=== PATIENT | female | born 2005 | race Two or more races ===

== ENCOUNTER 2024-02-01 14:25 | Observation (INO) | payer MEDICAID, SELFPAY ==
[2024-02-01] VITALS (27 sets, daily range): BP systolic 124–154; BP diastolic 76–97; PULSE 92–156; RESP 16; TEMP 36.8; O2SAT 76–99
--- NOTE | 2024-02-01 14:57 | XR_ITS ---
Examination: Complete OB ultrasound greater than 14 weeks Date and time of exam: February 01, 2024 1552 hrs. Indications: Leaking amniotic fluid and pelvic cramping today Findings: Viable intrauterine single fetus with single amniotic sac presentation cephalic Cardiac motion 123 BPM Placenta posterior grade 2 Umbilical cord insertion 3 vessel seen Amniotic fluid index 11.1 cm spine maternal right Cervix 3.1 cm Ovaries obscured by bowel gas. Composite estimated gestational age based on BPD, head circumference, abdominal circumference, femur length is 30 weeks 3 days Estimated weight 1616 g. Survey of intracranial anatomy, spinal anatomy, abdominal anatomy, four-chamber heart performed with no abnormalities identified. Impression: Viable intrauterine gestation cephalic presentation Amniotic fluid index 11.1 cm.
[2024-02-01 15:12] LABS: Collection Type, Urine Clean Catch
[2024-02-01 15:22] LABS: Bilirubin,Urine Negative (Negative); Blood,Urine Negative (Negative); Clarity,Urine Clear (Clear/Hazy); Color,Urine Colorless (Lt Yel-Yel); Glucose, Urine Negative (Negative); Ketones,Urine Negative (Negative); Leukocyte Esterase,Urine Negative (Negative); Nitrite,Urine Negative (Negative); Protein,Urine Negative (Neg - Trace); RBC,Urine 1 /hpf (0-3); Specific Gravity,Urine 1.003 (1.001-1.035); Squamous Epithelial Cell,Urine < 1 /hpf (0-5); Urobilinogen,Urine Negative mg/dL (0.0-1.0); WBC,Urine < 1 /hpf (0-5)
[2024-02-01 15:25] LABS: ROM Kit Lot # 57805053
[2024-02-01 15:27] LABS: ROM Swab Mixed By: HILEL; Rupture of Fetal Membranes Negative (Negative); Swb Mxed in Solvent 1 min? Yes
[2024-02-01] MEDS: NIFEdipine 10 MG CAPSULE PO (19:30)
== END 2024-02-01 19:43 | disposition home or self-care (01) ==
PROVIDERS: Admitting Provider Obstetrics & Gynecology; PCP Nurse Practitioner Women's Health; Visit Provider Obstetrics & Gynecology
DX: O26.893 Other specified pregnancy related conditions, third trimester (principal); M54.50 Low back pain, unspecified; R10.9 Unspecified abdominal pain; Z3A.28 28 weeks gestation of pregnancy
CPT/HCPCS: 59025; 59899; 76805; 81001; 84112; A9270

== ENCOUNTER 2024-03-08 11:25 | Observation (INO) | payer MEDICAID, SELFPAY ==
[2024-03-08 11:37] VITALS: BP 113/77; PULSE 112
[2024-03-08 11:50] VITALS: BP 113/77; RESP 18; TEMP 36.7
[2024-03-08 11:52] VITALS: BMI 36.8
[2024-03-08 12:11] VITALS: BP 106/70; PULSE 104
[2024-03-08 12:18] LABS: Collection Type, Urine Clean Catch
[2024-03-08 12:19] LABS: Basophils % (Auto) 0 % (0-2.5); Eosinophils % (Auto) 0 % (0-10); Hematocrit 35.1 % (36.0-46.0); Immature Granulocytes % (Auto) 0 % (0-0); Immature Granulocytes Auto 0.04 Thou/mm3 (0.00-0.00); Lymphocytes # (Auto) 1.4 Thou/mm3 (1.0-4.8); Lymphocytes % (Auto) 15 % (10-50); Mean Corpuscular HGB Conc 34.2 g/dl (31.0-37.0); Mean Corpuscular Hemoglobin 27.6 pg (25.0-35.0); Mean Corpuscular Volume 81 fL (80-100); Monocytes # (Auto) 0.7 Thou/mm3 (0.0-0.8); Monocytes % (Auto) 8 % (0-12); Neutrophils # (Auto) 7.4 Thou/mm3 (1.8-7.7); Neutrophils % (Auto) 77 % (37-80); Nucleated Red Blood Cell % 0 /100 WBC (0); Platelet Count 285 Thou/mm3 (140-440); RDW Standard Deviation 38.1 fL (36.4-46.3); Red Blood Count 4.34 Miln/mm3 (4.00-5.20); White Blood Count 9.5 Thou/mm3 (4.5-11.0)
[2024-03-08 12:25] VITALS: BP 111/71; PULSE 110
[2024-03-08 12:25] LABS: Bilirubin,Urine Negative (Negative); Blood,Urine Negative (Negative); Budding Yeast,Urine Present; Clarity,Urine Turbid (Clear/Hazy); Color,Urine Yellow (Lt Yel-Yel); Glucose, Urine Negative (Negative); Ketones,Urine Negative (Negative); Leukocyte Esterase,Urine Positive (Negative); Nitrite,Urine Negative (Negative); Protein,Urine Negative (Neg - Trace); RBC,Urine 27 /hpf (0-3); Specific Gravity,Urine 1.014 (1.001-1.035); Squamous Epithelial Cell,Urine 12 /hpf (0-5); Urobilinogen,Urine Negative mg/dL (0.0-1.0); WBC,Urine 1 /hpf (0-5)
[2024-03-08 12:40] VITALS: BP 106/72; PULSE 104
[2024-03-08 12:40] LABS: Fibrinogen 453 mg/dL (175-375); Partial Thromboplastin Time 27.2 Seconds (22.0-36.0); Prothrombin Time 10.9 Seconds (9.0-12.2)
[2024-03-08 12:42] LABS: Alanine Aminotransferase 16 U/L (10-49); Albumin, Serum 3.7 gm/dL (3.5-5.0); Albumin/Globulin Ratio 1.6 (1.2-2.2); Alkaline Phosphatase 210 U/L (46-116); Anion Gap 9 (7-16); Aspartate Amino Transferase 18 U/L (0-34); BUN/Creatinine Ratio 8 Ratio (12-20); Bilirubin,Total 0.4 mg/dL (0.3-1.2); Blood Urea Nitrogen 5 mg/dL (9-23); Calcium 9.6 mg/dL (8.3-10.6); Calcium (Corrected) 9.8 mg/dL (8.5-10.1); Carbon Dioxide 24.2 mMol/L (20.0-31.0); Chloride 105 mMol/L (98-107); Creatinine (Component) 0.6 mg/dL (0.6-1.3); Estimated Creatinine Clearance 151.3 mL/min (>60); Globulin 2.3 gm/dL (2.3-3.5); Glucose 119 mg/dL (74-106); LDH (Lactate Dehydrogenase) 157 U/L (120-246); Osmolality,Calculated 273 (275-295); Potassium 3.2 mMol/L (3.4-5.1); Sodium 138 mMol/L (136-145); Uric Acid 4.3 mg/dL (3.1-7.8); eGFR > 60 See Note
== END 2024-03-08 12:55 | disposition home or self-care (01) ==
PROVIDERS: Admitting Provider Student in an Organized Health Care Education/Training Program; Visit Provider Student in an Organized Health Care Education/Training Program
DX: Z34.83 Encounter for supervision of other normal pregnancy, third trimester (principal); Z36.89 Encounter for other specified antenatal screening; Z3A.33 33 weeks gestation of pregnancy
CPT/HCPCS: 36415; 59025; 59899; 80053; 81001; 83615; 84550; 85025; 85384; 85610; 85730

== ENCOUNTER 2024-03-18 17:50 | Observation (INO) | payer MEDICAID, SELFPAY ==
[2024-03-18] VITALS (84 sets, daily range): BP systolic 111–137; BP diastolic 55–86; PULSE 91–115; O2SAT 92–99; BMI 31.0
[2024-03-18] MEDS: BETAMET ACET/BETAMET NA PH (Celestone) 6 MG/ML VIAL 12 MG IM (19:23)
[2024-03-18] MEDS: ACETAMINOPHEN 325 MG TABLET 650 MG PO (22:24)
[2024-03-18] MEDS: ACETAMIN/CAFF/BUTAL (Fioricet) 1 TAB PO (23:35)
[2024-03-18] MEDS: FAMOTIDINE INJ 10 MG/ML VIAL 2 ML 20 MG IVP (23:35)
[2024-03-18] MEDS: RINGERS LACTATED 1000 ML 1,000 ML 125 ML IV (23:40)
[2024-03-19] VITALS (170 sets, daily range): BP systolic 92–155; BP diastolic 54–85; PULSE 79–120; RESP 18; TEMP 36.8–37; O2SAT 89–99
--- NOTE | 2024-03-19 07:00 | XR_ITS ---
Examination: age Limited TECHNIQUE: Limited transabdominal sonographic images pelvis Exam date and time: March 19, 2004 0719 hours INDICATIONS: Diagnosis leaking amniotic fluid FINDINGS: Viable intrauterine gestation Cardiac motion 131 BPM Amniotic fluid index 11.1 cm IMPRESSION: Amniotic fluid index 11.1 cm
[2024-03-19] MEDS: RINGERS LACTATED 1000 ML 1,000 ML 125 ML IV (07:18)
[2024-03-19] MEDS: LABETALOL 100 MG TABLET PO (08:42)
--- NOTE | 2024-03-19 09:10 | XR_ITS ---
Examination: Biophysical profile, ultrasound Date and time of exam: March 19, 2024 0947 hours INDICATIONS: Diagnosis labor, history intermittent pelvic pain beginning 3 days ago Technique: Multiple transabdominal sonographic images of the pelvis abdomen obtained. Attention is directed to the breathing movement, gross body movement, amniotic fluid volume and tone. Findings: Amniotic fluid index 9.4 cm Total biophysical profile is 8 of 8. breathing movement is 2. Gross body movement is 2. tone is 2. Qualitative amniotic fluid volume is 2 Impression: Biophysical profile is 8 of 8.
--- NOTE | 2024-03-19 12:15 | PD.LDTRIAGE2 ---
Documentation for date of: 03/18/24 Hx History : 2 Complaint Complaint Complaint: 18-year-old G2, P0 at 35 weeks and 1 day presented with complaints of leaking. AmniSure was negative NST was nonreactive ( variables. non recurrent, baseline wandering , few episodes of baseline as low as 90) however BPP was 8 out of 8. The patient was admitted for a prolonged observation. Of note baby has a history of 2 small VSDs in her echocardiogram. Overnight monitoring showed baseline fluctuations from 140 to 100s. Moderate variability and accelerations were seen through out. I spoke with Dr Donald , who advised ECHO. Cooper was discharged and sent to L&D , [facility], fro monitoring and ECHO. Patient has allready recieved 2 doses of betamethasone Contractions Evaluation Contractions Monitor Mode: External Contraction Frequency: none Sterile Vaginal Exam Cervical Dilatation: fingertip Heart Monitoring Heart Rate Assessment Monitor Mode: External Amniotic Membranes Amniotic Membranes Amniotic Membrane Status: Intact RN Notes Disposition Dispostition: 23hr Observation
[2024-03-19] MEDS: BETAMET ACET/BETAMET NA PH (Celestone) 6 MG/ML VIAL 12 MG IM (12:21)
== END 2024-03-19 12:35 | disposition home or self-care (01) ==
PROVIDERS: Admitting Provider Student in an Organized Health Care Education/Training Program; Visit Provider Student in an Organized Health Care Education/Training Program
DX: Z34.83 Encounter for supervision of other normal pregnancy, third trimester (principal); Z36.9 Encounter for antenatal screening, unspecified; Z3A.35 35 weeks gestation of pregnancy
CPT/HCPCS: 59899; 76815; 76819; 96360; 96361; 96372; J0702; J3490; J7120; A9270

== ENCOUNTER 2024-03-31 13:21 | Inpatient (IN) | payer MEDICAID, SELFPAY ==
[2024-03-31] VITALS (103 sets, daily range): BP systolic 0–144; BP diastolic 0–95; PULSE 91–119; RESP 17–18; TEMP 36.6–37.2; O2SAT 85–100; BMI 30.4
--- NOTE | 2024-03-31 14:37 | ESHP_ITS ---
Documentation for date of: 03/31/24 OB Labor/Induct. HPI History of Present Illness Chief complaint: Induction of labor at 37 weeks for suspected LGA and - induced HTN : 2 History of Abortions: Spontaneous and Elective: 1 History of sections: No History of : No LICHA: 04/21/24 Gestational Age (weeks): 37 Gestational Age (days): 0 Indication for induction: medical complication History of present illness: The patient is a 18-year-old -0-1-0 who sees the regeneration operator at [facility] who presented for scheduled induction of labor at 37 weeks for gestational hypertension. Patient has been started on labetalol this 100 mg p.o. daily. She is also been followed with the maternal- medicine service with Dr. Sandoval in [place] for VSDs in the baby. On March 08, 2024 Dr. Sandoval's saw the patient and performed an ultrasound. She was 33 weeks the baby was measuring [address] Sandoval suggested delivery between 37 and 38 weeks for hypertension if severe features develop. On the day of admission patient denies headaches changes in vision or right upper quadrant pain. She is reporting good movement. No loss of no loss of fluids or vaginal bleeding. She denies feeling contractions. History of Present Dating criteria: LMP confirmed by 1st trimester US Adequate Care: Yes Ultrasounds: abnormal US findings Abnormal ultrasound findings: Baby with 2 VSDs Obstetrical complications: gestational hypertension Labs Maternal Blood Type: O Neg Labs: Negative: RPR, Hepatitis B, HIV, Chlamydia and Gonorrhea Review of Systems Constitutional Constitutional: Reports system reviewed and no additional complaints, except as documented Comments: Patient reports good movement no contractions on admission no signs of preeclampsia on admission Past Medical History Surgical History SURGICAL: Negative Section Meds Home Medications and Allergies Home Medications ?Medication ?Instructions ?Recorded ?Confirmed ?Type vits no.124-ferrous fum 1 tab PO QDAY 4 03/31/24 History 27 mg iron-folic acid 800 mcg tablet ( Vitamin) labetalol 100 mg tablet 100 mg PO QDAY 03/18/2403/04 History folic acid 800 mcg tablet 0.8 mg PO QDAY 03/31/2403/04 History Allergies Allergy/AdvReac Type Severity Reaction Status Date / Time No Known Allergies Allergy Verified 03/31/24 14:15 OB Exam Physical Exam Vital signs: Pulse BP Pulse Ox 103 H 123/86 H 97 03/31/24 14:14 03/31/24 14:14 03/31/24 14:35 Routine Abdominal Exam Abdominal: Present soft Detailed Labor and Delivery Exam Dilation (cm): 2-3 Effacement (%): 70 Cervix position: posterior station: -2 Consistency: medium Presentation: Vertex Membranes: intact monitor accelerations: 15x15 monitor decelerations: None USP variability: Moderate (11-25) Contraction frequency (min): None OB Assessment & Plan Additional Plan Induction method: per misoprostol protocol Plan: induction Additional Plan Comment: Patient is admitted for induction of labor at 37 weeks secondary to gestational hypertension on medication. The Baby also has a suspected LGA. The Baby should be about 8 pounds based on a 33-week ultrasound performed by the [facility]. The baby also has 2 VSDs. The Baby will need an echocardiogram after . Plan for buccal Cytotec induction for gestational hypertension at this point.
[2024-03-31] MEDS: MISOPROSTOL 50 mCg TABLET PO ×2 (15:13→19:40)
[2024-03-31 15:47] LABS: Collection Type, Urine Clean Catch
[2024-03-31 15:53] LABS: Basophils % (Auto) 0 % (0-2.5); Eosinophils % (Auto) 0 % (0-10); Hematocrit 37.7 % (36.0-46.0); Hemoglobin 12.4 g/dL (12.0-16.0); Immature Granulocytes % (Auto) 1 % (0-0); Immature Granulocytes Auto 0.07 Thou/mm3 (0.00-0.00); Lymphocytes # (Auto) 1.9 Thou/mm3 (1.0-4.8); Lymphocytes % (Auto) 15 % (10-50); Mean Corpuscular HGB Conc 32.9 g/dl (31.0-37.0); Mean Corpuscular Hemoglobin 26.2 pg (25.0-35.0); Mean Corpuscular Volume 80 fL (80-100); Monocytes # (Auto) 0.8 Thou/mm3 (0.0-0.8); Monocytes % (Auto) 6 % (0-12); Neutrophils # (Auto) 10.2 Thou/mm3 (1.8-7.7); Neutrophils % (Auto) 78 % (37-80); Nucleated Red Blood Cell % 0 /100 WBC (0); Platelet Count 337 Thou/mm3 (140-440); RDW Standard Deviation 39.9 fL (36.4-46.3); Red Blood Count 4.73 Miln/mm3 (4.00-5.20); White Blood Count 13.1 Thou/mm3 (4.5-11.0)
[2024-03-31 16:03] LABS: Creatinine,Random Urine 110 mg/dL (30-125); Protein Total, Random Urine 15 mg/dL (1-14)
[2024-03-31 16:04] LABS: Bilirubin,Urine Negative (Negative); Blood,Urine Negative (Negative); Clarity,Urine Clear (Clear/Hazy); Color,Urine Lt-Yellow (Lt Yel-Yel); Glucose, Urine Negative (Negative); Ketones,Urine Negative (Negative); Leukocyte Esterase,Urine Negative (Negative); Nitrite,Urine Negative (Negative); Protein,Urine Negative (Neg - Trace); RBC,Urine 4 /hpf (0-3); Specific Gravity,Urine 1.014 (1.001-1.035); Squamous Epithelial Cell,Urine 2 /hpf (0-5); Urobilinogen,Urine Negative mg/dL (0.0-1.0); WBC,Urine 1 /hpf (0-5)
[2024-03-31 16:15] LABS: Fibrinogen 524 mg/dL (175-375); Partial Thromboplastin Time 27.6 Seconds (22.0-36.0); Prothrombin Time 10.8 Seconds (9.0-12.2)
[2024-03-31 16:19] LABS: Alanine Aminotransferase 8 U/L (10-49); Albumin, Serum 4.1 gm/dL (3.5-5.0); Albumin/Globulin Ratio 1.6 (1.2-2.2); Alkaline Phosphatase 294 U/L (46-116); Anion Gap 11 (7-16); Aspartate Amino Transferase 12 U/L (0-34); BUN/Creatinine Ratio 10 Ratio (12-20); Bilirubin,Total 0.4 mg/dL (0.3-1.2); Blood Urea Nitrogen 7 mg/dL (9-23); Calcium 9.1 mg/dL (8.3-10.6); Calcium (Corrected) 9.1 mg/dL (8.5-10.1); Carbon Dioxide 21.5 mMol/L (20.0-31.0); Chloride 103 mMol/L (98-107); Creatinine (Component) 0.7 mg/dL (0.6-1.3); Globulin 2.5 gm/dL (2.3-3.5); Glucose 77 mg/dL (74-106); Osmolality,Calculated 267 (275-295); Potassium 3.3 mMol/L (3.4-5.1); Sodium 135 mMol/L (136-145); Total Protein 6.6 gm/dL (5.7-8.2); eGFR > 60 See Note
[2024-03-31 16:26] LABS: Syphilis Nonreactive (Nonreactive)
[2024-04-01] VITALS (327 sets, daily range): BP systolic 0–167; BP diastolic 0–132; PULSE 79–129; RESP 15–18; TEMP 36.6–37.1; O2SAT 75–100
[2024-04-01] MEDS: MISOPROSTOL 50 mCg TABLET PO (00:30)
[2024-04-01] MEDS: RINGERS LACTATED 1000 ML 1,000 ML 125 ML IV ×3 (04:00→07:33)
--- NOTE | 2024-04-01 04:50 | PD.LDPN ---
Documentation for date of: 04/01/24 OB Labor Progress Note Pain Control Comments: Patient is feeling contractions would like an epidural at this point. Pelvic Exam Dilation (cm): 5 Effacement (%): 70 station: -2 Amniotic membrane status: Bulging Contractions Monitor mode: External Contraction frequency: 3-4 min Contraction intensity: Moderate Status status: Category l Assessment and Plan Assessment: active labor and induction ongoing Comments: The patient will have epidural placed. Then will consider AROM and/or Pitocin after patient is comfortable with epidural. Patient had 3 doses of buccal Cytotec 50 each.
--- NOTE | 2024-04-01 05:52 | PD.ADDDELA ---
Addendum Delivery Summary A Addendum Date of report being addended: 04/01/24 Narrative: Per the nursery the Apgars on the baby are now 6,8 and 10
--- NOTE | 2024-04-01 10:15 | PD.LDPN ---
Documentation for date of: 04/01/24 OB Labor Progress Note Pelvic Exam Dilation (cm): 5 Effacement (%): 70 station: -2 Amniotic membrane status: Bulging Contractions Monitor mode: External Contraction frequency: 3-4 min Contraction intensity: Moderate Status status: Category l Assessment and Plan Comments: I assumed care of Lisa at 0700 this morning. In brief, she is a 18yo with SIUP at 37wk undergoing IOL for GHTN on labetalol 100mg PO BID. complicated by known VSDs for which she has been followed by MFM. Also LGA. She has received cytotec and progressed into labor. Recently received epidural and currently comfortable. Vitals wnl, afebrile Cat I FHRT SCE: /-2, soft/mid. AROM performed at 0835, clear. Plan to continue close observation IV pitocin augmentation per protocol as indicated CEFM Safe to proceed echo after delivery per MFM's plan in place Shahnaz Cobb MD
[2024-04-01] MEDS: OXYTOCIN in NS 20 units 20 UNIT/1,000 ML BAG 125 UNIT IV ×2 (16:37→20:12)
[2024-04-01] MEDS: BENZO/LANO/ALOE (Dermoplast) 60 GM CAN 1 SPRAY TOP (16:41)
[2024-04-01] MEDS: MINERAL OIL 30 ML UDC TOP (16:41)
[2024-04-01] MEDS: IBUPROFEN TAB 400 MG TABLET 800 MG PO (16:42)
--- NOTE | 2024-04-01 16:54 | OBDSUM_ITS ---
Data ([facility]) Data Hx Section: No : 2 Para: 0 Term: 0 : 0 : 1 Delivery Data ([facility]) Labor Data ROM Date: 04/01/24 ROM Time: 08:35 Rupture Type: AROM Amniotic Fluid: Clear Delivery Data Labor Onset Stage 1 Date: 04/01/24 Labor Onset Stage 1 Time: 04:30 Labor Onset Stage 2 Date: 04/01/24 Labor Onset Stage 2 Time: 16:01 Delivery Date: 04/01/24 Delivery Time: 16:30 Placenta Delivery Date: 04/01/24 Placenta Delivery Time: 16:37 Delivered by: Shahnaz Cobb Delivery nurse: Soraida Rose Other staff at delivery: 2nd Nurse Other staff at delivery: Bench Boring Machine Operator Other staff at delivery: RT Other staff at delivery: La Skinner Other staff at delivery: MD Gaines Omid Other staff at delivery: fruib Delivery Method Delivery: Vaginal Delivery Type: Spontaneous Anesthesia Type Primary Anesthesia: Epidural Placenta Placenta Delivery: Spontaneous Cord Sample: Cord Blood Obtained Episiotomy Episiotomy: Midline EBL Estimated blood loss (ml): 300 Umbilical Cord Nuchal Cord: x1 Additional Procedures Lisa is a 18yo [id number] s/p uncomplicated at 37w1d after undergoing IOL for GHTN, delivering at 1630 on 04/01/2024. She progressed through induction without complications until she was C/C/+1 at which point she began pushing. She had received an epidural. There was heart rate decelerations to the 80's with pushes as the infant was at +4/+5 station and the introitus was very narrow with laceration inevitable, so I obtained consent from the patient to make a small midline episiotomy only 1cm in size to facilitate delivery. After that, with good maternal pushing efforts, 's head then delivered OA and restituted CURTIS. One snug nuchal cord reduced. Left anterior shoulder delivered easily followed by posterior shoulder and corpus. Infant had spontaneous cry and was vigorous. Apgars 8/9. Infant placed on maternal abdomen where nose/mouth were suctioned and was dried/stimulated. After approximately 1 minute, cord was clamped x2 and cut by FOB. Baby went to warmer for assessment by inspector and hand packager given the previous finding of VSDs on ultrasound. Cord blood collected for typing. With fundal massage and cord traction, placenta delivered spontaneously and intact with 3 vessel centrally inserted cord. Placenta appeared quite calcified. Bimanual massage performed and IV pitocin given per protocol with fundus then firm at u-2cm and hemostasis noted. Inspection of perineum and vagina revealed a superficial right labial laceration and the small 1cm midline episiotomy that had no extension which were both repaired with 4-0 vicryl in routine fashion with complete reapproximation and hemostasis achieved. Small trickle of blood, so sweep just within cervix/JACOB performed which retrieved a small amount of clot. Fundus and JACOB remained firm. All counts correct x2. Mom and infant were doing well when I left the room. Shahnaz Cobb MD Complications Complications: none [place] Data ([facility]) Data Gender: Female Weight Grams: 3280 1 Minute Total: 8 5 Minute Total: 9
[2024-04-01] MEDS: TRANEXAMIC ACID 1,000 MG IVPB 1,000 MG/100 ML BAG 200 MG IV (19:54)
[2024-04-01] MEDS: RINGERS LACTATED 1000 ML 1,000 ML 999 ML IV (20:00)
[2024-04-01] MEDS: CARBOPROST TROMETH INJ 250 MCG/ML VIAL IM (20:05)
[2024-04-01] MEDS: MISOPROSTOL 200 mCg TABLET 800 MCG PO (20:07)
[2024-04-01] MEDS: DIPHENOXYLATE/ATROP SULF 1 TAB PO (20:15)
--- NOTE | 2024-04-01 20:37 | PC.NURSE ---
1957- provider at bedside to assess pt. Updated on maternal status with continued clots and bleeding ( trickle flowing). QBL at 605ml
[2024-04-01 20:40] LABS: Basophils % (Auto) 0 % (0-2.5); Eosinophils % (Auto) 0 % (0-10); Hematocrit 27.8 % (36.0-46.0); Hemoglobin 9.4 g/dL (12.0-16.0); Immature Granulocytes % (Auto) 0 % (0-0); Immature Granulocytes Auto 0.07 Thou/mm3 (0.00-0.00); Lymphocytes # (Auto) 1.4 Thou/mm3 (1.0-4.8); Lymphocytes % (Auto) 8 % (10-50); Mean Corpuscular HGB Conc 33.8 g/dl (31.0-37.0); Mean Corpuscular Hemoglobin 26.9 pg (25.0-35.0); Mean Corpuscular Volume 79 fL (80-100); Monocytes # (Auto) 1.2 Thou/mm3 (0.0-0.8); Monocytes % (Auto) 7 % (0-12); Neutrophils # (Auto) 14.3 Thou/mm3 (1.8-7.7); Neutrophils % (Auto) 84 % (37-80); Nucleated Red Blood Cell % 0 /100 WBC (0); Platelet Count 270 Thou/mm3 (140-440); RDW Standard Deviation 39.8 fL (36.4-46.3); White Blood Count 16.9 Thou/mm3 (4.5-11.0)
[2024-04-01] MEDS: ACETAMINOPHEN 325 MG TABLET 650 MG PO (21:14)
--- NOTE | 2024-04-01 21:37 | EVENTNT_ITS ---
Documentation for date of: 04/01/24 Event Note Event Note: Hemorrhage I was called by RN to bedside to evaluate for excess bleeding. Initially RN had observed a trickle of bleeding, but then with fundal massage there was a large clot that came out and continued bleeding. When I arrived to the floor, I was informed a vaginal exam had been done with a large amount of clot retrieved from within the lower uterus but patient had continued bleeding. The PPH cart was in the room. I donned gloves and gown and performed an exam. Fundus was firm and there was only a small amount of clot within the lower uterine segment. The top of the uterus was very firm and clamped down with nothing retained. I performed bimanual massage as 2nd bag of IV pitocin was infusing and I requested for 0.25mg IM hemabate to be given as well as 1g IV TXA. I continued to massage the fundus of the uterus and the bleeding slowed to normal lochia. I used sterile gauze pad to blot within the perineal/vaginal area and ensured that the earlier repair had not been disrupted. I then placed 800mcg cytotec CO. Patient tolerated all of this very well. During the entire episode she had normal pulse 80's, bp 140's systolic and never felt lightheaded. I asked for CBC to be performed which resulted 9.5 Hgb. Will repeat in am. Continued close observation to be performed for 2 hours before patient is transferred to PP room. PP EBL 1100ml (total 1300ml including delivery). Imodium will be given to co unteract the side effects of hemabate. Shahnaz Cobb MD
[2024-04-02 00:55] VITALS: BP 123/82; PULSE 91; RESP 16; TEMP 36.8
[2024-04-02 04:43] VITALS: BP 107/68; PULSE 85; RESP 16; TEMP 36.9; O2SAT 98
[2024-04-02 06:53] LABS: Basophils % (Auto) 0 % (0-2.5); Eosinophils % (Auto) 0 % (0-10); Hemoglobin 9.2 g/dL (12.0-16.0); Immature Granulocytes % (Auto) 1 % (0-0); Lymphocytes # (Auto) 2.3 Thou/mm3 (1.0-4.8); Lymphocytes % (Auto) 16 % (10-50); Mean Corpuscular HGB Conc 32.9 g/dl (31.0-37.0); Mean Corpuscular Hemoglobin 26.7 pg (25.0-35.0); Mean Corpuscular Volume 81 fL (80-100); Monocytes % (Auto) 7 % (0-12); Neutrophils # (Auto) 10.9 Thou/mm3 (1.8-7.7); Neutrophils % (Auto) 76 % (37-80); Nucleated Red Blood Cell % 0 /100 WBC (0); Platelet Count 267 Thou/mm3 (140-440); RDW Standard Deviation 40.6 fL (36.4-46.3); Red Blood Count 3.44 Miln/mm3 (4.00-5.20); White Blood Count 14.3 Thou/mm3 (4.5-11.0)
[2024-04-02 07:56] VITALS: BP 107/70; PULSE 95; RESP 17; TEMP 36.8; O2SAT 98
[2024-04-02 09:00] VITALS: BP 107/70; PULSE 95
[2024-04-02] MEDS: IBUPROFEN TAB 400 MG TABLET 800 MG PO (11:22)
--- NOTE | 2024-04-02 12:07 | PD.LDDS ---
DS: Providers Provider Date of admission: 03/31/24 13:21 Primary care physician: Physician No Primary/Family Admitting Provider: Marlen Mobley MD Attending Provider on Admission: Marlen Mobley MD Consults: 04/01/24 16:52 Referral Routine Comment: Attending Provider on DC: Shahnaz Cobb MD Discharging Provider: Shahnaz Cobb MD DS: Diagnosis Discharge Diagnosis (1) Gestational hypertension: Status: Acute (2) hemorrhage: Status: Acute (3) Anemia, : Status: Acute Problem List Completed Was Problem List Reviewed/Reconciled?: Yes Summary/Hosp Course Brief History: The patient is a 18-year-old -0-1-0 who sees the certified medical assistant at [facility] who presented for scheduled induction of labor at 37 weeks for gestational hypertension. Patient has been started on labetalol this 100 mg p.o. daily. She is also been followed with the maternal- medicine service with Dr. Sandoval in [place] for VSDs in the baby. On March 08, 2024 Dr. Sandoval's saw the patient and performed an ultrasound. She was 33 weeks the baby was measuring [address] Sandoval suggested delivery between 37 and 38 weeks for hypertension if severe features develop. On the day of admission patient denies headaches changes in vision or right upper quadrant pain. She is reporting good movement. No loss of no loss of fluids or vaginal bleeding. She denies feeling contractions. Lisa is a 18yo [id number] s/p at 37wk after undergoing IOL for GHTN, delivering at 1630 on 04/02/24. She had a PPH of approximately 1100ml EBL a couple hours after delivery related to atony that was completely treated with evacuation of clots, uterine massage and uterotonics. She is meeting all milestones and feels ready for discharge home. She is ambulating without lightheadedness, tolerating regular diet no n/v, spontaneously voiding without issue. She has no chest pain or shortness of breath. No fevers or chills. Minimal, appropriate discomfort. Vitals normal, benign exam. Hemodymanically stable with no evidence of infection. PP Hgb 9.2. Status at Discharge Functional status at discharge: independent ambulation Overall status at discharge: patient is back to baseline Time Spent with Patient Time attestation: Total time spent providing and/or coordinating discharge services: Exam Vital Signs Temp Pulse Resp BP Pulse Ox O2 Del Method 98.3 F 95 17 107/70 98 Room Air 04/02/24 07:56 04/02/24 07:56 04/02/24 07:56 04/02/24 07:56 04/02/24 07:56 04/02/24 07:56 Narrative Exam General: well developed, well nourished, no acute distress, conversant Cardiac: normal heart rate Lungs: breathing without distress Abdomen: soft, post-gravid, non-tender, no rebound or guarding. Fundus firm at u-2cm. Extremities: no pain with palpation of calves, trace edema of BLE Discharge Plan Plan Patient Disposition: HOME (Self Care) Patient condition on transfer: Stable Prescriptions/Referrals Prescriptions/Med Rec: New docusate sodium 100 mg Capsule 100 mg PO BID 10 Days Qty: 20 0RF ibuprofen 800 mg tablet 800 mg PO Q8H PRN (Reason: See Comments) 10 Days Qty: 30 0RF ferrous sulfate 325 mg (65 mg iron) tablet 325 mg PO QDAY Qty: 30 0RF Continued folic acid 800 mcg tablet 0.8 mg PO QDAY Patient Comments: TOME 1 TABLETA POR V A ORAL TODOS LOS D Vitamin 27 mg iron- 800 mcg Tablet 1 tab PO QDAY Discontinued labetalol 100 mg Tablet 100 mg PO QDAY Referrals: No Primary/Family,Physician [Primary Care Provider] - Patient/Caregiver Discharge Instructions Discharge Activity: activity as tolerated Other Discharge Activity Instructions:: Vaginal rest, no bathing (shower ok) and no heavy lifting greater than 10 pounds for 6 weeks Other Discharge Diet Instructions: regular diet Education Materials: After a Vaginal , Gestational Hypertension Print Language: Faroese Activity Restrictions/Additional Instructions: follow up in 1 week with OBGYN or CNM in clinic for bp check Stand Alone Forms: Bonnie Award Info., Patient Portal Info Letter Discharge Order Discharge Orders: Discharge (Routine); Ordered 04/02/24 Ordered By: Shahnaz Cobb Planned Discharge Date 04/02/24 (1) Gestational hypertension Qualifiers: Trimester: third trimester Qualified Code(s): O13.3 - Gestational [-induced] hypertension without significant proteinuria, third trimester (2) hemorrhage Qualifiers: hemorrhage type: delayed hemorrhage Qualified Code(s): O72.2 - Delayed and secondary hemorrhage
[2024-04-02 12:41] VITALS: BP 126/89; PULSE 110; RESP 17; TEMP 37; O2SAT 97
[2024-04-02] MEDS: ACETAMINOPHEN 325 MG TABLET 650 MG PO (18:13)
== END 2024-04-02 18:50 | disposition home or self-care (01) | DRG 560 ==
LOC: S4SX 04-01 17:36 → S4NX 04-01 23:07
PROVIDERS: Obstetrics & Gynecology; Admitting Provider Obstetrics & Gynecology; Visit Provider Obstetrics & Gynecology
DX: O13.4 Gestational [pregnancy-induced] hypertension without significant proteinuria, complicating childbirth (principal); Z37.0 Single live birth; O70.0 First degree perineal laceration during delivery; Z3A.37 37 weeks gestation of pregnancy; O72.2 Delayed and secondary postpartum hemorrhage; O90.81 Anemia of the puerperium; O76 Abnormality in fetal heart rate and rhythm complicating labor and delivery; O36.63X0 Maternal care for excessive fetal growth, third trimester, not applicable or unspecified; O69.81X0 Labor and delivery complicated by cord around neck, without compression, not applicable or unspecified; O99.42 Diseases of the circulatory system complicating childbirth; Q21.0 Ventricular septal defect
CPT/HCPCS: 36415; 59409; 80053; 81001; 82570; 84156; 84550; 85025; 85384; 85610; 85730; 86780; 86850; 86900; 86901; 86923; 94762; J2590; J3490; J7120; S0191; A9270

== ENCOUNTER 2024-04-10 03:57 | Emergency (ER) | payer MEDICAID, SELFPAY ==
[2024-04-10 03:58] VITALS: BMI 27.7
[2024-04-10 04:10] VITALS: BP 132/95; PULSE 125; RESP 18; TEMP 37.9; O2SAT 96
--- NOTE | 2024-04-10 04:32 | PD.EDRME ---
Rapid Medical Screening Exam [facility] Arrival date/time: 04/10/24 03:57 18F with no significant PMH presents to ED with presents to ED with 2 days of MACEDO, N/V, ab/pelvic pain/cramping, and non-bloody diarrhea. Patient denies URI symptoms and sick contacts. Patient had a vaginal delivery here 1 week ago. Patient notes the vaginal bleeding had been lessening but then got worse around the same time as the other symptoms. Chief Complaint: Vaginal Bleeding Vital signs: Vital Signs Temperature 100.3 F 04/10/24 04:10 Pulse Rate 125 H 04/10/24 04:10 Respiratory Rate 18 04/10/24 04:10 Blood Pressure 132/95 H 04/10/24 04:10 Pulse Oximetry (%) 96 04/10/24 04:10 Oxygen Delivery Method Room Air 04/10/24 04:10
[2024-04-10 05:01] LABS: Lactate (Lactic Acid) 1.6 mMol/L (0.4-2.0)
[2024-04-10] MEDS: ONDANSETRON ODT 4 MG TABRAP PO (05:06)
[2024-04-10 05:07] VITALS: TEMP 37.9
[2024-04-10] MEDS: ACETAMINOPHEN 500 MG TABLET 1000 MG PO (05:07)
[2024-04-10 05:08] LABS: Basophils % (Auto) 0 % (0-2.5); Eosinophils % (Auto) 0 % (0-10); Hematocrit 37.9 % (36.0-46.0); Hemoglobin 12.2 g/dL (12.0-16.0); Immature Granulocytes % (Auto) 0 % (0-0); Immature Granulocytes Auto 0.05 Thou/mm3 (0.00-0.00); Lymphocytes # (Auto) 0.6 Thou/mm3 (1.0-4.8); Lymphocytes % (Auto) 5 % (10-50); Mean Corpuscular HGB Conc 32.2 g/dl (31.0-37.0); Mean Corpuscular Hemoglobin 26.4 pg (25.0-35.0); Mean Corpuscular Volume 82 fL (80-100); Monocytes # (Auto) 0.1 Thou/mm3 (0.0-0.8); Monocytes % (Auto) 1 % (0-12); Neutrophils # (Auto) 11.6 Thou/mm3 (1.8-7.7); Neutrophils % (Auto) 94 % (37-80); Nucleated Red Blood Cell % 0 /100 WBC (0); Platelet Count 502 Thou/mm3 (140-440); RDW Standard Deviation 44.3 fL (36.4-46.3); Red Blood Count 4.62 Miln/mm3 (4.00-5.20); White Blood Count 12.4 Thou/mm3 (4.5-11.0)
[2024-04-10 05:20] VITALS: BP 112/81; PULSE 104; RESP 18; TEMP 37.2; O2SAT 97
[2024-04-10 05:28] LABS: Alanine Aminotransferase 21 U/L (10-49); Albumin/Globulin Ratio 1.5 (1.2-2.2); Alkaline Phosphatase 182 U/L (46-116); Anion Gap 9 (7-16); Aspartate Amino Transferase 17 U/L (0-34); BUN/Creatinine Ratio 15 Ratio (12-20); Bilirubin,Total 0.4 mg/dL (0.3-1.2); Blood Urea Nitrogen 9 mg/dL (9-23); Calcium 9.1 mg/dL (8.3-10.6); Calcium (Corrected) 9.1 mg/dL (8.5-10.1); Carbon Dioxide 23.6 mMol/L (20.0-31.0); Chloride 108 mMol/L (98-107); Creatinine (Component) 0.6 mg/dL (0.6-1.3); Estimated Creatinine Clearance 163.1 mL/min (>60); Globulin 2.7 gm/dL (2.3-3.5); Glucose 91 mg/dL (74-106); Osmolality,Calculated 279 (275-295); Potassium 3.8 mMol/L (3.4-5.1); Procalcitonin 0.06 ng/ml (0.0-0.49); Sodium 141 mMol/L (136-145); Total Protein 6.7 gm/dL (5.7-8.2); eGFR > 60 See Note
[2024-04-10 05:39] LABS: Collection Type, Urine Clean Catch
[2024-04-10 05:45] LABS: Bilirubin,Urine Negative (Negative); Blood,Urine 3+ (Negative); Clarity,Urine Clear (Clear/Hazy); Color,Urine Lt-Yellow (Lt Yel-Yel); Glucose, Urine Negative (Negative); Ketones,Urine Negative (Negative); Leukocyte Esterase,Urine Positive (Negative); Nitrite,Urine Negative (Negative); Protein,Urine Negative (Neg - Trace); RBC,Urine 3 /hpf (0-3); Specific Gravity,Urine 1.012 (1.001-1.035); Squamous Epithelial Cell,Urine 2 /hpf (0-5); Urobilinogen,Urine Negative mg/dL (0.0-1.0); WBC,Urine 42 /hpf (0-5)
--- NOTE | 2024-04-10 06:20 | PD.EDADULT ---
ED General RME/HPI General Chief complaint: Vaginal Bleeding Stated complaint: VAG BLEEDING PP 1WK Time Seen by Provider: 04/10/24 06:29 Arrival date/time: 04/10/24 03:57 RME / HPI RME / HPI narrative: 04/10/24 03:57 18F with no significant PMH presents to ED with presents to ED with 2 days of MACEDO, N/V, ab/pelvic pain/cramping, and non-bloody diarrhea. Patient denies URI symptoms and sick contacts. Patient had a vaginal delivery here 1 week ago. Patient notes the vaginal bleeding had been lessening but then got worse around the same time as the other symptoms. DR. ARREDONDO MAIN ED EVALUATION: 18 year old female , vaginal delivery 1 week ago 04/01/24, presents to the Emergency Department with complaints of vaginal bleeding, generalized body aches, and a mild headache. She states she still has vaginal bleeding but is has lessened. Denies any fevers, chills, or other symptoms. Related Data Home Medications ?Medication ?Instructions ?Recorded ?Confirmed vits no.[id number]-ferrous fum 1 tab PO QDAY 02/01/24 03/31/24 27 mg iron-folic acid 800 mcg tablet ( Vitamin) folic acid 800 mcg tablet 0.8 mg PO QDAY 03/31/24 03/31/24 Previous Rx's ?Medication ?Instructions ?Recorded docusate sodium 100 mg capsule 100 mg PO BID 10 days #20 caps 04/02/24 ferrous sulfate 325 mg (65 mg 325 mg PO QDAY #30 tabs 04/02/24 iron) tablet ibuprofen 800 mg tablet 800 mg PO Q8H PRN See Comments 10 04/02/24 days #30 tabs Allergies Allergy/AdvReac Type Severity Reaction Status Date / Time No Known Allergies Allergy Verified 03/31/24 14:15 Review of Systems Review of Systems Systems Reviewed: All systems reviewed, normal except as documented Narrative Review of Systems: GEN: No fever, no chills, no weight loss, + generalized body aches EYES: No discharge, no visual changes, no pain HEENT: No ear pain, no congestion, no sore throat PULM: No shortness of breath, no cough, no congestion CV: No chest pain, no dyspnea on exertion, no palpitations GI: No nausea, no vomiting, no diarrhea, no pain, no constipation : No frequency, no urgency and no dysuria + vaginal bleeding MUSC/SKEL: No joint pain, no back pain SKIN: No rash PSYCH: No hallucinations, no depression HEME/LYMPH: No easy bleeding or bruising tendencies NEURO: No weakness, + mild headache Past Medical History Past Medical History CARDIAC: Negative Congestive Heart Failure RESPIRATORY: Negative Chronic Obstructive Pulmonary Disease (COPD) GENITOURINARY: Negative Renal Disease ENDOCRINE: Negative Diabetes Mellitus Type 1 or Diabetes Mellitus Type 2 Social History SMOKING STATUS: Never smoker ED Exam Narrative Physical exam: GENERAL APPEARANCE: alert and oriented x 4, well-developed, well-nourished, no acute distress VITALS: All vitals were reviewed and the pulse ox is 96% on room air, which is normal according to my interpretation. HEENT: Normocephalic, atraumatic; pupils equal, round, reactive to light; EOMI; mucous membranes pink, moist; oropharynx clear NECK: Supple LUNGS: CTABL; no wheezes, no rales, no rhonchi HEART: Regular rate, regular rhythm; normal S1, S2; no murmurs ABDOMEN: non distended; normal BS; soft, no tenderness, no guarding, no rebound; no masses, no organomegaly, no hernia BACK: no CVA tenderness EXTREMITIES: atraumatic; no edema NEUROLOGIC: awake; alert and oriented x4; cranial nerves II-XII grossly intact; no focal sensory or motor deficits PSYCHIATRIC: appropriate mood and affect SKIN: warm, dry, normal color; no rashes Course Quality Measures none Orders Category Date Time Status Bedside COVID-19 Antigen Test NOW Care 04/10/24 04:32 Completed Bedside Influenza A&B Antigen Test NOW Care 04/10/24 04:32 Completed CBC Stat Lab 04/10/24 04:53 Completed CMP [Comprehensive Metabolic Panel] Stat Lab 04/10/24 04:53 Completed Lactate (Lactic Acid) Stat Lab 04/10/24 04:53 Completed Procalcitonin Stat Lab 04/10/24 04:53 Completed Urinalysis Stat Lab 04/10/24 05:12 Completed Acetaminophen Tab [Tylenol ES Tab] Med 04/10/24 04:31 Discontinued 1,000 mg PO X1 ONE Ondansetron Odt [Zofran Odt] Med 04/10/24 04:31 Discontinued 4 mg PO X1 ONE Vital Signs Vital signs: Vital Signs Temperature 100.3 F 04/10/24 04:10 Pulse Rate 125 H 04/10/24 04:10 Respiratory Rate 18 04/10/24 04:10 Blood Pressure 132/95 H 04/10/24 04:10 Pulse Oximetry (%) 96 04/10/24 04:10 Oxygen Delivery Method Room Air 04/10/24 04:10 [facility] Patient data External records reviewed:: [facility] previous records (Reviewed last [employer] / [employer] admission discharge dated 04/02/24.) Clinical information provided by:: patient Social determinants that could affect healthcare access:: none Patient has the following chronic illnesses:: , vaginal delivery 1 week ago 04/01/24. Denies any PMHx, surgeries, daily medications, or known allergies. How is presenting disease/condition affected by chronic disease/condition?: no chronic disease Evaluation data The following diagnostics were reviewed and interpreted by me:: lab results Lab and/or radiology exams considered but not ordered:: none Interpretation Summary: No acute findings. Medications Medications considered but not ordered:: none Medication administrations:: Medication Administration History Discontinued Medications Acetaminophen (Acetaminophen 500 Mg Tablet) 1,000 mg PO X1 ONE Stop: 04/10/24 04:32 Last Admin: 04/10/24 05:07 Dose: 1,000 mg Documented By: CVL Ondansetron HCl (Ondansetron Odt 4 Mg Tabrap) 4 mg PO X1 ONE; Protocol Stop: 04/10/24 04:32 Last Admin: 04/10/24 05:06 Dose: 4 mg Documented By: CVL see above Consultations Consultation(s) initiated? (list below): No Diagnosis Differential Diagnosis ED Complaint MDM: fever, sepsis, dehydration Most likely diagnosis given after review of the tests above:: Fever Diarrhea Admission Indicated Admission indicated?: not indicated Explain why admission is indicated or not indicated:: Patient has no emergent abnormalities on his studies and can be managed on an outpatient basis. Admission Request Was there a request for admission?: No Disposition Plan Disposition Plan: Discharge Discharge Attestation Discharge Attestation: The patient and all family members were given an opportunity to ask questions and understood the discharge instructions. Discharge instructions specifically effects, indications for sooner follow up or return to the emergency department, and the expected course of current diagnosis. Patient condition: Stable Medical Decision Making MDM Narrative MDM Narrative: Pallavi Edward, am scribing for and in the presence of Dr. Arredondo. Differential Diagnosis Differential Diagnosis: fever, sepsis, dehydration Lab Data 04/10/24 04:53 04/10/24 04:53 Labs: Lab Results 04/10/24 04/10/24 Range/Units 04:53 05:12 WBC 12.4 H (4.5-11.0) Thou/mm3 RBC 4.62 (4.00-5.20) Miln/mm3 Hgb 12.2 (12.0-16.0) g/dL Hct 37.9 (36.0-46.0) % MCV 82 (80-100) fL MCH 26.4 (25.0-35.0) pg MCHC 32.2 (31.0-37.0) g/dl RDW Std Deviation 44.3 (36.4-46.3) fL Plt Count 502 H D (140-440) Thou/mm3 Neut % (Auto) 94 H (37-80) % Lymph % (Auto) 5 L (10-50) % [place] % (Auto) 1 (0-12) % Eos % (Auto) 0 (0-10) % Baso % (Auto) 0 (0-2.5) % Neut # (Auto) 11.6 H (1.8-7.7) Thou/mm3 Lymph # (Auto) 0.6 L (1.0-4.8) Thou/mm3 [place] # (Auto) 0.1 (0.0-0.8) Thou/mm3 Eos # (Auto) 0.0 (0.0-0.5) Thou/mm3 Baso # (Auto) 0.0 (0.0-0.2) Thou/mm3 Immature Gran # (Auto) 0.05 H (0.00-0.00) Thou/mm3 Absolute Nucleated RBC 0.00 (0.00-0.00) Thou/mm3 Immature Gran % 0 (0-0) % Nucleated RBC % 0 (0) /100 WBC Sodium 141 (136-145) mMol/L Potassium 3.8 (3.4-5.1) mMol/L Chloride 108 H (98-107) mMol/L Carbon Dioxide 23.6 (20.0-31.0) mMol/L Anion Gap 9 (7-16) BUN 9 (9-23) mg/dL Creatinine 0.6 (0.6-1.3) mg/dL Estim Creat Clear Calc 163.1 (>60) mL/min eGFR > 60 (60 - ) See Note BUN/Creatinine Ratio 15 (12-20) Ratio Glucose 91 (74-106) mg/dL Calculated Osmolality 279 (275-295) Lactic Acid 1.6 (0.4-2.0) mMol/L Calcium 9.1 (8.3-10.6) mg/dL Corrected Calcium 9.1 (8.5-10.1) mg/dL Total Bilirubin 0.4 (0.3-1.2) mg/dL AST 17 (0-34) U/L ALT 21 (10-49) U/L Alkaline Phosphatase 182 H (46-116) U/L Total Protein 6.7 (5.7-8.2) gm/dL Albumin 4.0 (3.5-5.0) gm/dL Globulin 2.7 (2.3-3.5) gm/dL Albumin/Globulin Ratio 1.5 (1.2-2.2) Procalcitonin 0.06 (0.0-0.49) ng/ml Ur Collection Type Clean Catch Urine Color Lt-Yellow (Lt Yel-Yel) Urine Clarity Clear (Clear/Hazy) Urine pH 6.0 (5.0-7.0) Ur Specific [place] 1.012 (1.001-1.035) Urine Protein Negative (Neg - Trace) Urine Glucose (UA) Negative (Negative) Urine Ketones Negative (Negative) Urine Blood 3+ A (Negative) Urine Nitrite Negative (Negative) Urine Bilirubin Negative (Negative) Urine Urobilinogen (Auto) Negative (0.0-1.0) mg/dL Ur Leukocyte Esterase Positive (Negative) Urine RBC 3 (0-3) /hpf Urine WBC 42 H (0-5) /hpf Ur Squamous Epith Cells 2 (0-5) /hpf Urine Bacteria None (None) Discharge Plan Plan Patient Disposition: HOME (Self Care) Prescriptions/Referrals Prescriptions/Med Rec: No Action folic acid 800 mcg tablet 0.8 mg PO QDAY Patient Comments: TOME 1 TABLETA POR V A ORAL TODOS LOS D docusate sodium 100 mg Capsule 100 mg PO BID 10 Days Qty: 20 0RF ibuprofen 800 mg tablet 800 mg PO Q8H PRN (Reason: See Comments) 10 Days Qty: 30 0RF ferrous sulfate 325 mg (65 mg iron) tablet 325 mg PO QDAY Qty: 30 0RF Vitamin 27 mg iron- 800 mcg Tablet 1 tab PO QDAY Referrals: No Primary/Family,Physician [Primary Care Provider] - In 1 week Problem List Clinical Impression: Fever, Diarrhea Patient/Caregiver Discharge Instructions Education Materials: Self-Care for Vomiting and Diarrhea Additional Instructions: Follow up with your primary care doctor tomorrow for recheck. Return to the emergency department immediately if symptoms worsen, do not improve, or other concerns. Print Language: British Stand Alone Forms: Bonnie Award Info., Patient Portal Info Letter
[2024-04-10 06:33] VITALS: BP 119/80; PULSE 94; RESP 18; TEMP 36.3; O2SAT 96
== END 2024-04-10 06:34 | disposition home or self-care (01) ==
PROVIDERS: Physician Assistant; Emergency Provider Emergency Medicine
DX: O86.4 Pyrexia of unknown origin following delivery (principal); O90.89 Other complications of the puerperium, not elsewhere classified; R19.7 Diarrhea, unspecified
CPT/HCPCS: 36415; 80053; 81001; 83605; 84145; 85025; 87086; 87400; 87811; 99283; Q0162; A9270